=== PATIENT | male | born 1980 | race Caucasian/White ===

== ENCOUNTER 2018-03-18 10:10 | Emergency (ER) | payer BC, OTHER ==
[2018-03-18 10:16] VITALS: BP 122/76
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
[2018-03-18] MEDS ORDERED: LET GEL TOPICAL 1 EA SYR TP ONE (11:21)
== END 2018-03-18 13:23 | disposition home or self-care (01) ==
DX: S52.124A Nondisplaced fracture of head of right radius, initial encounter for closed fracture (principal); S62.651A Nondisplaced fracture of middle phalanx of left index finger, initial encounter for closed fracture; S51.012A Laceration without foreign body of left elbow, initial encounter; S63.502A Unspecified sprain of left wrist, initial encounter; S63.501A Unspecified sprain of right wrist, initial encounter; S30.810A Abrasion of lower back and pelvis, initial encounter; B35.4 Tinea corporis; V18.0XXA Pedal cycle driver injured in noncollision transport accident in nontraffic accident, initial encounter; Y92.410 Unspecified street and highway as the place of occurrence of the external cause; Y99.8 Other external cause status; Y93.55 Activity, bike riding
CPT/HCPCS: L3807; L3925

== ENCOUNTER → 2018-04-05 | Outpatient (CLI) | payer BC | LOC: BMCIMAGING 09:50 | PROVIDERS: ATTEND Orthopaedic Surgery | DX: S62.621D Displaced fracture of middle phalanx of left index finger, subsequent encounter for fracture with routine healing (principal) ==